=== PATIENT | female | born 1975 | race Caucasian/White ===

== ENCOUNTER 2016-11-14 08:39 | Outpatient (CLI) | payer OTHER ==
--- NOTE | 2016-11-14 10:19 | DIAGNOSTIC IMAGING REPORT ---
PROCEDURE: US KIDNEY/RENAL COMPLETE INDICATION: RENAL COLIC ON RT SIDE TECHNIQUE: Leija scale and color Doppler sonographic imaging of the kidneys and urinary bladder was obtained. Intrarenal resistive indices were calculated when appropriate. COMPARISON: None. FINDINGS: The right kidney measures 10 x 5.3 x 4.8 cm Normal cortical thickness and echogenicity. No hydronephrosis, cyst, solid mass, or shadowing calculus. Normal color Doppler blood flow throughout the kidney. Resistive indices in the intrarenal parenchymal arteries range from 0.59-0.62 The left kidney measures 10.6 x 4.9 x 5.5 cm Normal cortical thickness and echogenicity. No hydronephrosis, cyst, solid mass, or shadowing calculus. Normal color Doppler blood flow throughout the kidney. Resistive indices in the intrarenal parenchymal arteries range from 0.54-0.64 The filled urinary bladder has a volume of 47 CC and a post void residual of 1.3 ml The urinary bladder wall is uniform and 6 mm in thickness. No bladder debris, calcification or mass. Bilateral ureteral jets were visible indicating ureteral patency. IMPRESSION: 1. Normal renal morphology. 2. Slightly thickened bladder wall secondary to a urinary tract infection and antibiotics.
--- NOTE | 2016-11-14 10:22 | DIAGNOSTIC IMAGING REPORT ---
PROCEDURE: MG BILATERAL SCREENING W/CAD INDICATION: Screening. Baseline. Family history breast carcinoma (aunt). TECHNIQUE: Bilateral CC and MLO digital views. COMPARISON: None. FINDINGS: Computer-aided detection applied. Moderately dense with a few dystrophic calcifications. No evidence of mass or suspicious calcification. IMPRESSION: 1. Negative mammogram. RESULT CODE: 1- Negative. A. A negative report should not delay biopsy if a dominant or clinically suspicious mass is present. 10-15% of cancers are not identified by x-ray. B. A negative report may reinforce clinical impression. C. Adenosis and dense breasts may obscure an underlying neoplasm. D. False positive reports average 6-10%. E.. A yearly screening mammogram is recommended. A reminder letter will be scheduled.
== END 2016-11-14 23:00 ==
LOC: MAM SRH 08:39 → US SRH 08:39 → MAM SRH 09:00
DX: Z12.31 Encounter for screening mammogram for malignant neoplasm of breast (principal); Z80.3 Family history of malignant neoplasm of breast; N39.0 Urinary tract infection, site not specified

== ENCOUNTER 2016-11-23 15:00 | Outpatient (CLI) | payer OTHER ==
--- NOTE | 2016-11-23 15:53 | DIAGNOSTIC IMAGING REPORT ---
PROCEDURE: XR SACRUM AND COCCYX INDICATION: BILATERAL LOW BACK PX WITHOUT SCIATICA TECHNIQUE: Three views of the sacrum and coccyx. COMPARISON: None. FINDINGS: Normal mineralization. No acute fractures. There is slight bony rounded protuberance along the dorsal aspect of the distal sacrum at the S4-5 junction. No suspicious periostitis. The sacral coccygeal junction is normal in alignment. No dislocation. Moderate disc height loss at the L5-S1 level. Mild spurring caudally at the sacroiliac joints. Normal pubic symphysis. Visible osseous pelvis and pelvic soft tissues are normal. IMPRESSION: 1. Mild dorsal bony prominence of the S4-5 junction bilaterally, normal variant. 2. Minor degeneration at the sacroiliac joints bilaterally (spurring). 3. Moderate L5-S1 disc height loss.
== END 2016-11-23 23:00 | disposition home or self-care (01) ==
LOC: XR SRH 15:00
DX: M47.818 Spondylosis without myelopathy or radiculopathy, sacral and sacrococcygeal region (principal); M51.37 Other intervertebral disc degeneration, lumbosacral region